=== PATIENT | male | born 1950 | race Caucasian/White ===

== ENCOUNTER → 2020-04-04 13:47 | Outpatient (BNVA) | payer MEDICARE, OTHER, SELFPAY | PROVIDERS: PCP Family Medicine; Visit Provider Urology | DX: Z76.89 Persons encountering health services in other specified circumstances (principal) | CPT/HCPCS: 99212 ==

== ENCOUNTER 2020-04-21 08:37 | Outpatient (REF) | payer MEDICARE, OTHER, SELFPAY ==
[2020-04-21 08:14] VITALS: BMI 31.8
[2020-04-21 08:16] VITALS: BP 113/50; PULSE 71; RESP 16; TEMP 36.3; O2SAT 96
--- NOTE | 2020-04-21 08:59 | MHC.SHP ---
Pre-Procedural Eval Section A The patient is an INPATIENT: No Changes since office visit: No Cold of Flu in the past 2 weeks, No New Medical Problems, No Changes in Medication and No Patient answered all questions The History & Physical has been completed within 30 days and I have reviewed it.: Yes Section B Chief Complaint: Elevated PSA Allergies: Allergies Allergy/AdvReac Type Severity Reaction Status Date / Time No Known Allergies Allergy Verified 04/21/20 08:43 Plan Patient has been examined and remains a candidate for the planned procedure
--- NOTE | 2020-04-21 09:18 | PM.OP ---
Brief Operative Note Date of procedure: 04/21/20 Pre-op diagnosis: Elevated SPA Post-op diagnosis: same Procedure: Transrectal ultrasound measurement of prostate 2. transrectal ultrasound-guided prostatic nerve block 3. transrectal ultrasound-guided prostate biopsy Implants: none Surgeon: Dirk Jerome MD Anesthesia: local Estimated blood loss (mL): 0 Pathology: other (12 core prostate) Condition: stable Disposition: same day
--- NOTE | 2020-04-21 09:19 | W.PM.OPN ---
Operative Note Operative Note Narrative: Preoperative diagnosis: Elevated PSA Postoperative diagnosis: Elevated PSA Procedure: 1. transrectal ultrasound measurement of prostate 2. transrectal ultrasound-guided pudendal nerve block 3. transrectal ultrasound-guided prostate biopsy 12 core Surgeon: Dr. Dirk Jerome Anesthetic: Local Indications for procedure: Elevated PSA Prostate Cancer Procedure: After informed consent was verified, the patient was brought into the procedure area and lay left-hand side down on the table. Patient identity confirmed. Perioperative antibiotics confirmed. Gel was placed per rectum Ultrasound probe was placed per rectum The prostate was measured in 3 dimensions Total volume equals 110 g, no calcification, no cyst There were no cystic structures and no calcifications noted and the prostate was homogeneous in nature A ultrasound-guided pudendal nerve block was performed using 10 cc of 1% lidocaine. 8 cc was placed at the base and 2 cc of the apex. A 12 core biopsy was performed with 6 cores each side. Two cores were taken at the apex, mid and base. Cores were spaced between lateral and medial. He tolerated the procedure well. Was able to ambulate to bathroom after 5 minutes. Printed instructions regarding antibiotic use and common side effects such as low-grade temperature and bleeding were given.
== END 2020-04-21 08:38 | disposition home or self-care (01) ==
LOC: HO.MS 08:37
PROVIDERS: PCP Family Medicine; Visit Provider Urology
PROC: (CPT 55700; principal; 2020-04-21 09:30)
DX: R97.20 Elevated prostate specific antigen [PSA] (principal)
CPT/HCPCS: 55700; 88305; 88344

== ENCOUNTER → 2020-04-30 15:39 | Outpatient (BNVA) | payer MEDICARE, OTHER, SELFPAY | PROVIDERS: PCP Family Medicine; Referring Provider Family Medicine; Visit Provider Urology | DX: Z76.89 Persons encountering health services in other specified circumstances (principal) | CPT/HCPCS: Q3014 ==

== ENCOUNTER → 2020-12-09 15:02 | Outpatient (BNVA) | payer MEDICARE, OTHER, SELFPAY | PROVIDERS: Visit Provider Urology | DX: N40.0 Benign prostatic hyperplasia without lower urinary tract symptoms (principal); R97.20 Elevated prostate specific antigen [PSA] | CPT/HCPCS: 99212 ==

== ENCOUNTER → 2021-06-17 13:43 | Outpatient (BNVA) | payer MEDICARE, OTHER, SELFPAY | PROVIDERS: PCP Family Medicine; Visit Provider Urology | DX: N40.0 Benign prostatic hyperplasia without lower urinary tract symptoms (principal); R97.20 Elevated prostate specific antigen [PSA] | CPT/HCPCS: Q3014 ==

== ENCOUNTER → 2021-12-22 14:04 | Outpatient (BNVA) | payer MEDICARE, OTHER, SELFPAY | PROVIDERS: PCP Internal Medicine; Visit Provider Urology | DX: N40.0 Benign prostatic hyperplasia without lower urinary tract symptoms (principal); R97.20 Elevated prostate specific antigen [PSA] | CPT/HCPCS: Q3014 ==

== ENCOUNTER → 2022-06-23 14:48 | Outpatient (BNVA) | payer MEDICARE, OTHER, SELFPAY | PROVIDERS: PCP Internal Medicine; Visit Provider Urology | DX: R97.20 Elevated prostate specific antigen [PSA] (principal); N40.0 Benign prostatic hyperplasia without lower urinary tract symptoms; N39.43 Post-void dribbling; Z79.01 Long term (current) use of anticoagulants; Z79.899 Other long term (current) drug therapy | CPT/HCPCS: 99212 ==

== ENCOUNTER 2023-03-30 | Outpatient (REF) | payer MEDICARE, OTHER, SELFPAY | END 2023-03-30 00:01 | disposition home or self-care (01) | LOC: CF | PROVIDERS: Visit Provider Nurse Practitioner Family | DX: R06.09 Other forms of dyspnea (principal); R94.2 Abnormal results of pulmonary function studies; I42.9 Cardiomyopathy, unspecified | CPT/HCPCS: 94618; 99212 ==

== ENCOUNTER 2023-03-30 15:14 | Outpatient (AMB) | payer MEDICARE, OTHER, SELFPAY ==
--- NOTE | 2023-03-30 15:33 | A.OFFVIS_ITS ---
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 Builder Required: No Channel Specialist: Channel Specialist offered & declined Accompanied by: Self / Same As Patient Allergies No Known Allergies Allergy (Verified 03/30/23 15:41) Medication List - Last Reconciled 03/30/23 by Shruti Gonzalez LPN allopurinol 300 mg PO DAILY allopurinol 100 mg PO DAILY apixaban 5 mg PO BID atorvastatin 40 mg PO BEDTIME finasteride 5 mg PO DAILY 90 days lisinopril 10 mg PO DAILY metformin ER 1,000 mg PO BID metoprolol succinate ER mg PO metoprolol succinate ER 200 mg PO DAILY metoprolol succinate ER 200 mg PO DAILY sacubitril-valsartan 97-103 mg 1 tab PO BID spironolactone mg PO warfarin 5 mg PO DAILY HPI covid syndrome 2 HPI0 Details Jagdish is a pleasant 72 year old male, never smoker, with underlying h/o provoked DVT after prolonged travel in 2009, cardiomyopathy, atrial fibrillation, maintained on metoprolol and coumadin, under cardiology at [facility]. He was referred for pulmonary evaluation after for worsening dyspnea over the past few months. His referral states possible long COVID, but patient states symptoms started after being diagnosed with atrial fibrillation. He has had COVID x 2. He denies chest tightness/discomfort or wheezing.He does have an acute cough x 1 week that has been resolving, otherwise denies cough at baseline. He reports having a recent PFT which revealed decreased DLCO, full report below. He was recently admitted at [facility] due to dyspnea where he reportedly had a recent echo and chest CT. Reports not available today. He also reports intermittent bilateral lower extremity edema, now on lasix after recent hospital admission. He denies any prior history of respiratory conditions. He reports multiple family members, all smokers, with lung cancer. 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 [facility] Medical History Benign prostatic hyperplasia without lower urinary tract symptoms Elevated PSA Incomplete emptying of bladder Weak urinary stream Social History (Updated 03/30/23 @ 15:45 by Shruti J Cambria, [employer]) Patient Tobacco Use Status: Never used Tobacco Advance Directives Date on File: 04/21/20 Review of Systems Const Denies chills, Denies excessive sweating, Denies fever(s), Denies headache(s) and Denies night sweats Eyes Denies dry eyes, Denies irritation and Denies itchy eyes ENT Reports Normal hearing present, Denies headache(s), Denies nasal congestion, Denies nasal discharge, Denies post nasal drip and Denies sore throat Card Denies chest pain, Denies chest pain at rest, Denies chest pain with activity, Denies claudication, Denies leg edema, Denies orthopnea and Denies paroxysmal nocturnal dyspnea Resp Denies chest congestion, Denies excessive phlegm production, Denies pain on inspiration, Denies pain with cough, Denies stridor and Denies wheezing Musc Denies myalgias Neuro Reports Normal hearing present and Denies headache(s) Endo Denies excessive sweating Rasheed/Lymph Denies lymphadenopathy Aller/Immun Denies itchy eyes, Denies seasonal rhinorrhea and Denies wheezing Physical Exam Vital Signs: Last Vital Signs BP 122/64 03/30/23 15:37 Pulse Ox 94 03/30/23 15:37 Oxygen Delivery Method Room Air 03/30/23 15:37 Oxygen Flow Rate 80 03/30/23 15:37 BMI result Body Mass Index 28.9 Const General: cooperative, healthy appearing, comfortable, no acute distress, well developed and alert Orientation/consciousness: patient oriented x3 Limitations: no limitations HEENT Head: Yes normal to inspection, Yes normocephalic and Yes atraumatic Ears: hearing grossly normal bilaterally and external ears normal Eyes General: appearance normal, both eyes and all related structures Eyelids: Yes eyelids normal Sclerae: sclerae normal EOM: EOMs intact bilaterally Neck Neck: Yes normal visual inspection and Yes no lymphadenopathy Lymphatic: no lymphadenopathy noted Chest Chest palpation & inspection: normal inspection of the chest Resp Effort & Inspection: normal respiratory effort, able to speak in complete sentences, no audible wheezes, no cough, no stridor, not tachypneic, no tripod positioning and no use of accessory muscles Auscultation: clear to auscultation bilaterally Cardio Jugular venous distension: no JVD Rate: regular rate Rhythm: regular rhythm Skin Other: warm, dry General skin exam: no rashes or lesions noted Neuro General: patient oriented x3 Cranial nerves: Yes Normal hearing present Cognition (Neuro): normal cognition Gait exam (Neuro): Normal gait present Extrem Other: trace edema BLE, L>R, currently has wound of LLE. General: Yes normal to inspection and Yes capillary refill normal Psych Appearance: grossly normal and well kempt Speech and movement: Normal speech and movement present and Clear speech present Affect: normal affect Attitude: cooperative Thought process: Normal thought process present Thought content: Normal thought content present Insight: Good insight present (Psych) Judgement: Good judgement present (Psych) Office Procedures 6 Minute Walk Time:: 16:20 SPO2 % at rest: 94 Pulse at rest: 104 SPO2 % during excercise: 80 Pulse during excercise: 124 SPO2 % after excercise: 96 Pulse after excercise: 118 Distance in yards walked: 1,000 Aniket Score: 6 Performance Observations:: Patient walked on level ground without assistance. After about 4 minutes he was short of breath and his O2 saturating dropped to 85% and then further to 80%. O2 applied via nasal cannula at 1L with O2 saturation recovered to 95% pulse rate of 105. Patient was able to complete the walk with O2 at 1 L maintaining his O2 sat at 95%. Patient would benefit from supplemental O2. 08919 - 6 Minute Walk Results Reviewed Results Reviewed: Assessment & Plan Assessment & Plan (1) Dyspnea on exertion: Code(s): R06.09 - Other forms of dyspnea (2) Cardiomyopathy: Code(s): I42.9 - Cardiomyopathy, unspecified (3) Decreased diffusion capacity: Code(s): R94.2 - Abnormal results of pulmonary function studies Plan Jagdish's symptoms are likely multifactorial with pulmonary and cardiac etiologies due to underlying atrial fibrillation and cardiomyopathy. Last echo revealed LVEF of 40-50% and elevated pulmonary pressures, report above. Will request cardiology reports to see if patient has had right heart catherization performed. Reviewed PFT from January 2023, which revealed normal lung volumes and did not reveal any obstructive or restrictive defects, however there is a significant decrease in DLCO, 47%, which is suggestive of possible interstitial lung disease or emphysema. Will obtain most recent chest CT to evaluate and will likely need to obtain disc for images, along with echo from recent hospital stay at [facility]. Will empirically trial ICS/LABA. Reviewed importance of oral hygiene. 6MWT performed and after 4 minutes his oxygen decreased to 80% and recovered after 1 liter of oxygen. Will send prescription for 1 liter of supplemental oxygen. Will also send for overnight oximetry to assess for nocturnal hypoxia. Will follow up in two weeks to reassess. All questions were answered and patient is in agreement of plan. Orders: Orders 2 AMB 6 minute walk Today R06.09 - Other forms of dyspnea Medications: New 2 Breo Ellipta 100-25 mcg/dose (fluticasone furoate-vilanterol) 1 inh inhalation DAILY 60 ea 3RF NS Coding Level of Care Code New Pt Level 4 (90452) Diagnoses Dyspnea on exertion R06.09 Cardiomyopathy I42.9 Decreased diffusion capacity R94.2 CPT Codes Coding ([id number])
[2023-03-30 15:37] VITALS: BP 122/64; O2SAT 94; BMI 28.9
[2023-03-30 16:59] VITALS: PULSE 104; O2SAT 94
== END 2023-03-30 16:46 | disposition home or self-care (01) ==
LOC: HO.HPSW 15:14
PROVIDERS: PCP Internal Medicine Cardiovascular Disease; Referring Provider Internal Medicine; Visit Provider Nurse Practitioner Family
DX: R06.09 Other forms of dyspnea (principal); R94.2 Abnormal results of pulmonary function studies; I42.9 Cardiomyopathy, unspecified
CPT/HCPCS: 94618; 99204

== ENCOUNTER 2023-04-13 15:01 | Outpatient (AMB) | payer MEDICARE, OTHER, SELFPAY ==
[2023-04-13 15:02] VITALS: BP 114/68; PULSE 98; O2SAT 99; BMI 29.7
--- NOTE | 2023-04-13 15:02 | A.OFFVIS_ITS ---
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 Required: No Lastex Operator: Lastex Operator offered & declined Accompanied by: Spouse Allergies No Known Allergies Allergy (Verified 04/13/23 15:13) Medication List - Last Reconciled 04/13/23 by Shruti Gonzalez LPN allopurinol 300 mg PO DAILY allopurinol 100 mg PO DAILY apixaban 5 mg PO BID atorvastatin 40 mg PO BEDTIME Breo Ellipta 100-25 mcg/dose (fluticasone furoate-vilanterol) 1 inh inhalation DAILY NS finasteride 5 mg PO DAILY 90 days lisinopril 10 mg PO DAILY metformin ER 1,000 mg PO BID metoprolol succinate ER mg PO metoprolol succinate ER 200 mg PO DAILY metoprolol succinate ER 200 mg PO DAILY sacubitril-valsartan 97-103 mg 1 tab PO BID spironolactone mg PO warfarin 5 mg PO DAILY HPI covid syndrome:2 week f/u 2 HPI0 Details Jagdish is a pleasant 72 year old male, never smoker, with underlying nonischemic cardiomyopathy, LVEF 03/22 55-60%, atrial fibrillation, h/o DVT, h/o CVA, Factor V Leiden mutation, maintained on metoprolol and coumadin, under care of cardiology at [facility]. Despite significant cardiac history patient maintained an active lifestyle until recently where he began to develop worsening dyspnea over the past few months, recent PFT which revealed a normal spirometry, normal lung volumes with decreased DLCO of 46%. Reviewed records from admission to [facility] earlier this month including echo and chest CT, full reports below. At the last visit he was empirically started on Breo, which he has only been using for the past 5 days as well as 1L of supplemental oxygen. Today he reports worsening dyspnea as well as limited activity due to increasing labored breathing. He reports continuing on lasix 40 mg QD. Since the last visit two weeks ago, he has gained 6 lbs. He recently had a consultation with [facility] hematology/oncology for pancytopenia and abnormal blood smears suggestive of a neoplastic process. He reports that he will be starting treatment in the near future as well as having a chest, abdomen and pelvic CT on Tuesday. He also reports that he will be following up with [facility] cardiology next week. Of note, he stated he had a sleep study 2-3 years ago performed at [facility] but never reviewed findings, will attempt to obtain report. [facility] Medical History Benign prostatic hyperplasia without lower urinary tract symptoms Elevated PSA Incomplete emptying of bladder Weak urinary stream Social History (Updated 04/13/23 @ 15:15 by Shruti Gonzalez LPN) Patient Tobacco Use Status: Never used Tobacco Advance Directives Date on File: 04/21/20 Review of Systems Const Denies chills, Denies excessive sweating, Denies fever(s), Denies headache(s) and Denies night sweats Eyes Denies dry eyes, Denies irritation and Denies itchy eyes ENT Reports Normal hearing present and Denies headache(s) Card Denies chest pain, Denies chest pain at rest, Denies chest pain with activity, Denies claudication, Reports leg edema, Reports dyspnea on exertion, Denies orthopnea and Denies paroxysmal nocturnal dyspnea Resp Denies chest congestion, Denies excessive phlegm production, Denies pain on inspiration, Denies pain with cough, Reports dyspnea on exertion, Denies stridor and Denies wheezing Musc Denies myalgias Neuro Reports Normal hearing present and Denies headache(s) Endo Denies excessive sweating Rasheed/Lymph Denies lymphadenopathy Aller/Immun Denies itchy eyes, Denies seasonal rhinorrhea and Denies wheezing Physical Exam Vital Signs: Last Vital Signs Pulse 98 04/13/23 15:02 BP 114/68 04/13/23 15:02 Pulse Ox 99 04/13/23 15:02 Oxygen Delivery Method Nasal Cannula 04/13/23 15:02 Oxygen Flow Rate 1 04/13/23 15:02 BMI result Body Mass Index 29.7 Const General: cooperative, no acute distress, well developed, alert and tired appearing Orientation/consciousness: patient oriented x3 Limitations: no limitations HEENT Head: Yes normal to inspection, Yes normocephalic and Yes atraumatic Ears: hearing grossly normal bilaterally and external ears normal Eyes General: appearance normal, both eyes and all related structures Eyelids: Yes eyelids normal Sclerae: sclerae normal EOM: EOMs intact bilaterally Neck Neck: Yes normal visual inspection and Yes no lymphadenopathy Lymphatic: no lymphadenopathy noted Chest Chest palpation & inspection: normal inspection of the chest Resp Effort & Inspection: able to speak in complete sentences, no audible wheezes, no cough, no stridor, not tachypneic, no tripod positioning and no use of accessory muscles Auscultation: crackles bilateral (faint inspiratory crackles) at the base Cardio Other: afib Jugular venous distension: no JVD Rate: regular rate Skin Other: warm, dry Neuro General: patient oriented x3 Cranial nerves: Yes Normal hearing present Cognition (Neuro): normal cognition Gait exam (Neuro): Normal gait present Extrem Other: 1-2+ pitting edema BLE, currently has wound of LLE being treated at wound care Psych Appearance: grossly normal and well kempt Speech and movement: Normal speech and movement present and Clear speech present Affect: normal affect Attitude: cooperative Thought process: Normal thought process present Thought content: Normal thought content present Insight: Good insight present (Psych) Judgement: Good judgement present (Psych) Results Reviewed Results Reviewed: CT 03/29/23 Echo 03/22/23 Assessment & Plan Assessment & Plan (1) Dyspnea on exertion: Code(s): R06.09 - Other forms of dyspnea (2) Cardiomyopathy: Code(s): I42.9 - Cardiomyopathy, unspecified (3) Pleural effusion due to congestive heart failure: Code(s): I50.9 - Heart failure, unspecified (4) Decreased diffusion capacity: Code(s): R94.2 - Abnormal results of pulmonary function studies (5) Pulmonary hypertension: Code(s): I27.20 - Pulmonary hypertension, unspecified Plan Jagdish's worsening symptoms are likely related to cardiac etiologies due to underlying atrial fibrillation and cardiomyopathy as well as anemia. We had long discussion regarding nature of his condition and ways to monitor including daily weights, limiting fluid intake and assessing for BLE edema. On exam today patient with 1-2+ pitting edema of BLE as well as faint bibasilar inspiratory crackles. Advised patient to increase his lasix to 40 mg BID until he is evaluated by cardiology next week. He was also given an order for CXR if his symptoms continue despite using lasix and to seek emergent care if symptoms worsen. Reviewed CT chest which revealed multiple enlarged mediastinal, hilar and subcarinal lymph nodes as well as bilateral small pleural effusions, suggestive of CHF. He reports he will be having a repeat chest CT this coming Tuesday with oncology. Echo revealed severely dilated left and right atrium as well as elevated pulmonary pressures. Briefly discussed assessing pulmonary hypertension with right heart catherization, but will await cardiology recommendations and plan with oncology. Will obtain prior sleep study to evaluate for any GLENDY that may be contributing to increased pulmonary pressures. Instructed patient to continue to use ICS/LABA another two weeks and if no notable improvements to discontinue. Will follow up in 4 weeks to reassess and review details of plan in place from cardiology and oncology. All questions were answered and patient is in agreement of plan. Orders: Orders 2 XR chest 2V Today R06.00 - Dyspnea, unspecified Coding Level of Care Code Est Pt Level 5 (58285) Diagnoses Dyspnea on exertion R06.09 Cardiomyopathy I42.9 Pleural effusion due to congestive heart failure I50.9 Decreased diffusion capacity R94.2 Pulmonary hypertension I27.20
== END 2023-04-13 16:10 | disposition home or self-care (01) ==
LOC: HO.HPSW 15:01
PROVIDERS: PCP Internal Medicine; Visit Provider Nurse Practitioner Family
DX: R06.09 Other forms of dyspnea (principal); R94.2 Abnormal results of pulmonary function studies; I27.20 Pulmonary hypertension, unspecified; I42.9 Cardiomyopathy, unspecified; I50.9 Heart failure, unspecified
CPT/HCPCS: 99214

== ENCOUNTER → 2023-04-13 15:01 | Outpatient (BNVA) | payer MEDICARE, OTHER, SELFPAY | PROVIDERS: PCP Internal Medicine; Visit Provider Nurse Practitioner Family | DX: I27.20 Pulmonary hypertension, unspecified (principal); I42.9 Cardiomyopathy, unspecified; R06.09 Other forms of dyspnea; I50.9 Heart failure, unspecified; R94.2 Abnormal results of pulmonary function studies | CPT/HCPCS: 99212 ==

== ENCOUNTER 2023-05-18 13:17 | Outpatient (AMB) | payer MEDICARE, OTHER, SELFPAY ==
[2023-05-18 13:24] VITALS: BMI 26.7
--- NOTE | 2023-05-18 13:24 | A.OFFVIS_ITS ---
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 Biomedical Engineering Required: No Dental Appliance Mechanic: Dental Appliance Mechanic offered & declined Accompanied by: Spouse Allergies No Known Allergies Allergy (Verified 05/18/23 13:27) Medication List - Last Reconciled 05/18/23 by Shruti Gonzalez LPN allopurinol 300 mg PO DAILY apixaban 5 mg PO BID atorvastatin 40 mg PO BEDTIME finasteride 5 mg PO DAILY 90 days metformin ER 1,000 mg PO BID metoprolol succinate ER 200 mg PO DAILY HPI covid syndrome : 5 week f/u HPI Details Jagdish is a pleasant 72 year old male, never smoker, with underlying nonischemic cardiomyopathy, LVEF 03/22 55-60%, atrial fibrillation, h/o DVT, h/o CVA, Factor V Leiden mutation, maintained on metoprolol and coumadin, under care of cardiology at [facility] and recently diagnosed with Myelodysplastic syndrome. He is under the care of oncology at [facility] and is receving chemo azacitidine a nd ventoclax. Since the last visit, he reports worsening of dyspnea, fatigue and deconditioning. He recently had labs and revealed pantocytopenia with WBC 0.4 and H/H of 12/14. He received a blood transfusion earlier today and is aware of neutropenic precautions. [facility] Medical History (Updated 05/24/23 @ 16:32 by Paige Guadalupe NP) Pulmonary hypertension Nocturnal hypoxemia Congestive heart failure (CHF) Cardiomyopathy Atrial fibrillation Factor 5 Leiden mutation, heterozygous History of DVT (deep vein thrombosis) History of CVA (cerebrovascular accident) Type 2 diabetes mellitus Gilbert syndrome Benign prostatic hyperplasia without lower urinary tract symptoms Elevated PSA Surgical History (Updated 05/06/23 @ 09:02 by Jaqueline Loja PA-C) History of prostate biopsy (~2019) History of appendectomy (~1958) Family History (Updated 05/06/23 @ 08:59 by Jaqueline Loja PA-C) Mother Lung cancer Father Prostate cancer Social History (Updated 04/13/23 @ 15:15 by Shruti Gonzalez LPN) Patient Tobacco Use Status: Never used Tobacco Advance Directives Date on File: 04/21/20 Review of Systems Const Denies excessive sweating, Denies fever(s) and Denies headache(s) Eyes Denies dry eyes, Denies irritation and Denies itchy eyes ENT Reports Normal hearing present and Denies headache(s) Card Denies chest pain, Denies chest pain at rest, Denies chest pain with activity, Denies claudication, Reports leg edema, Reports dyspnea on exertion, Denies orthopnea and Denies paroxysmal nocturnal dyspnea Resp Denies chest congestion, Denies excessive phlegm production, Denies pain on inspiration, Denies pain with cough, Reports dyspnea on exertion, Denies stridor and Denies wheezing Neuro Reports Normal hearing present and Denies headache(s) Endo Denies excessive sweating Aller/Immun Denies itchy eyes, Denies seasonal rhinorrhea and Denies wheezing Physical Exam Vital Signs: BMI result Body Mass Index 26.7 Const General: cooperative, no acute distress, alert and tired appearing Orientation/consciousness: patient oriented x3 HEENT Head: Yes normal to inspection, Yes normocephalic and Yes atraumatic Ears: hearing grossly normal bilaterally and external ears normal Eyes General: appearance normal, both eyes and all related structures Eyelids: Yes eyelids normal Sclerae: sclerae normal EOM: EOMs intact bilaterally Neck Neck: Yes normal visual inspection Chest Chest palpation & inspection: normal inspection of the chest Resp Effort & Inspection: able to speak in complete sentences, no audible wheezes, no cough, no stridor, not tachypneic, no tripod positioning and no use of accessory muscles Cardio Other: afib Jugular venous distension: no JVD Rate: regular rate Skin Other: warm, dry Neuro General: patient oriented x3 Cranial nerves: Yes Normal hearing present Cognition (Neuro): normal cognition Gait exam (Neuro): Normal gait present Extrem Other: 1-2+ pitting edema BLE, currently has wound of LLE being treated at wound care Psych Appearance: grossly normal and well kempt Speech and movement: Normal speech and movement present and Clear speech present Affect: normal affect Attitude: cooperative Thought process: Normal thought process present Thought content: Normal thought content present Insight: Good insight present (Psych) Judgement: Good judgement present (Psych) Assessment & Plan Assessment & Plan (1) Dyspnea on exertion: Code(s): R06.09 - Other forms of dyspnea (2) Cardiomyopathy: Code(s): I42.9 - Cardiomyopathy, unspecified (3) Pleural effusion due to congestive heart failure: Code(s): I50.9 - Heart failure, unspecified (4) Decreased diffusion capacity: Code(s): R94.2 - Abnormal results of pulmonary function studies (5) Pulmonary hypertension: Code(s): I27.20 - Pulmonary hypertension, unspecified (6) Interstitial lung disease: Code(s): J84.9 - Interstitial pulmonary disease, unspecified Plan Jagdish's worsening symptoms are likely related to cardiac etiologies due to underlying atrial fibrillation and cardiomyopathy as well as anemia and imaging suggestive of ILD. We again had long discussion regarding nature of his condition and ways to monitor including daily weights, limiting fluid intake and assessing for BLE edema. Echo revealed severely dilated left and right atrium as well as elevated pulmonary pressures. Briefly discussed assessing pulmonary hypertension with right heart catherization, but will await cardiology recommendations and plan with oncology. Will again attempt to obtain prior sleep study to evaluate for any GLENDY that may be contributing to increased pulmonary pressures. Instructed patient to continue to use ICS/LABA and supplemental oxygen. At this time, given patient is immunocompromised and continues to receive chemotherapy, will hold off any on treatment for ILD, as his condition may worsen with prednisone. Discussed with integration software developer, Celine Dutton. Will follow up on an as needed basis until he completes chemotherapy or sooner if needed. Discussed importance of monitoring oxygen saturation, however with anemia this may be difficult. All questions were answered and patient is in agreement of plan. Coding Level of Care Code Est Pt Level 4 (70500) Diagnoses Dyspnea on exertion R06.09 Cardiomyopathy I42.9 Pleural effusion due to congestive heart failure I50.9 Decreased diffusion capacity R94.2 Pulmonary hypertension I27.20 Interstitial lung disease J84.9
== END 2023-05-18 14:07 | disposition home or self-care (01) ==
PROVIDERS: PCP Internal Medicine; Visit Provider Nurse Practitioner Family
DX: R06.09 Other forms of dyspnea (principal); I42.9 Cardiomyopathy, unspecified; I50.9 Heart failure, unspecified; R94.2 Abnormal results of pulmonary function studies; I27.20 Pulmonary hypertension, unspecified; J84.9 Interstitial pulmonary disease, unspecified
CPT/HCPCS: 99214

== ENCOUNTER → 2023-05-18 13:17 | Outpatient (BNVA) | payer MEDICARE, OTHER, SELFPAY | PROVIDERS: PCP Internal Medicine; Visit Provider Nurse Practitioner Family | DX: R06.09 Other forms of dyspnea (principal); I50.9 Heart failure, unspecified; I42.9 Cardiomyopathy, unspecified; I27.20 Pulmonary hypertension, unspecified; R94.2 Abnormal results of pulmonary function studies; J84.9 Interstitial pulmonary disease, unspecified | CPT/HCPCS: 99212 ==

== ENCOUNTER 2023-07-01 13:33 | Outpatient (AMB) | payer MEDICARE, OTHER, SELFPAY ==
--- NOTE | 2023-07-01 13:34 | MHC.OFFVIS ---
Intake Intake Visit Reasons: 1Y PSA([place]) Intake Note: Patient is Present for Telephone Follow Up PSA Urology Med: Finasteride, Antibiotic Allergy: None Blood Thinner: Eliquis Allergies No Known Allergies Allergy (Verified 05/18/23 13:27) HPI HPI Comments History of Present Illness Details Jagdish HERRERA is a very pleasant male. He is a patient of Dr Cole. He is seen today for the following urologic conditions. - elevated PSA - BPH - postvoid dribbling Telemedicine Evaluation 15 min Consultation [facility] Video attempted Every other day finasteride. PSA rise to 3.6. This is consistent with declining finasteride effect Start finasteride daily Confounding factor is leukemia therapy which has had impact on urination Discussed postvoid dribbling. Information provided regarding male pelvic floor exercises Six month follow-up PSA Elevated PSA/Abnormal MARINO: Elevated PSA Negative biopsy 04/15 Improved stream with finasteride and good PSA decline Current management is medication with 5AR - daily Laboratory investigations include prior PSA in 4 range 07/15 6.2, 01/12 4.5 12% free, 09/13 3.1, 03/16 4.8 12% Free, 12/15 1.9, 06/16 2.3, 12/16 1.4, 06/17 1.6, 06/18 3.6 Individualized Prostate Cancer Risk Calculator 5-10% high risk, Discussed use of 5AR to help differentiate prostate cancer from benign disease. He would like to try this and understands the small risk associated with a delay in diagnosis. A TRUS biopsy has been performed and is negative 2009 Negative Prostate Biopsy Symptoms include 08/15 , incomplete emptying, intermittency, weak stream, nocturia, x 1, and are worsening. Overall symptoms are moderate. Therapeutic plan will be continued surveillance [facility] Medical History (Updated 05/24/23 @ 16:32 by Paige Guadalupe NP) Pulmonary hypertension Nocturnal hypoxemia Congestive heart failure (CHF) Cardiomyopathy Atrial fibrillation Factor 5 Leiden mutation, heterozygous History of DVT (deep vein thrombosis) History of CVA (cerebrovascular accident) Type 2 diabetes mellitus Gilbert syndrome Benign prostatic hyperplasia without lower urinary tract symptoms Elevated PSA Surgical History (Updated 05/06/23 @ 09:02 by Jaqueline Loja PA-C) History of prostate biopsy (~2019) History of appendectomy (~1958) Family History (Updated 05/06/23 @ 08:59 by Jaqueline Loja PA-C) Mother Lung cancer Father Prostate cancer Social History (Updated 04/13/23 @ 15:15 by Shruti Gonzalez LPN) Patient Tobacco Use Status: Never used Tobacco Advance Directives Date on File: 04/21/20 Review of Systems Const All systems reviewed & are unremarkable except as noted in HPI and below Reports no additional complaints Resp Reports no additional complaints GI Reports no additional complaints Reports as per HPI Musc Reports no additional complaints Physical Exam Telemedicine evaluation Appropriate responses Regular breathing rate and rhythm HEENT Head: Yes normal to inspection Ears: hearing grossly normal bilaterally Eyes General: appearance normal, both eyes and all related structures Neck Neck: Yes normal visual inspection Chest Chest palpation & inspection: normal inspection of the chest Resp Effort & Inspection: normal respiratory effort and able to speak in complete sentences Assessment & Plan Assessment & Plan (1) BPH w/o urinary obs/LUTS: Code(s): N40.0 - Benign prostatic hyperplasia without lower urinary tract symptoms (2) Elevated PSA: Code(s): R97.20 - Elevated prostate specific antigen [PSA] Plan Six month follow-up PSA Medications: Refilled finasteride 5 mg PO DAILY 90 tabs 1RF 90 days Patient Instructions: Imaging studies, laboratory and physical exam results were discussed and reviewed in detail. No major barriers to patient understanding were identified. An opportunity to ask questions regarding the treatment plan was provided. All questions were answered. The patient expressed understanding and agreement with the above treatment plan. The patient is aware they should contact our office by phone for worsening of their current condition or the appearance of new urologic symptoms. Compliance is encouraged with any medications and followup testing that is ordered. It is a privilege to participate in the urologic care of your patient. If you have any questions or concerns regarding treatment for the above conditions, or other urologic issues, please do not hesitate to contact me. The office telephone contact is [phone]. This note is constructed using voice recognition software. While every effort has been made to ensure accuracy wreath inspector errors may have been included. Yours sincerely, Dr Dirk Jerome MD, [facility] - Urology Providers of Expert, Compassionate Care for the Genitourinary System Telehealth Telehealth Location of provider rendering services: practice address Location of patient: address on file Patient Identification confirmed using: Name, : Yes Telehealth method: video Patient verbally consented to treatment: Yes Patient verbally consented to billing insurance company: Yes Patient informed of any privacy concerns related to visit: Yes Coding Level of Care Code Tele Est Pt Level 4 (30811) Diagnoses BPH w/o urinary obs/LUTS N40.0 Elevated PSA R97.20
== END 2023-07-01 13:45 | disposition home or self-care (01) ==
LOC: HO.HUSH 13:33
PROVIDERS: PCP Internal Medicine; Visit Provider Urology
DX: N40.0 Benign prostatic hyperplasia without lower urinary tract symptoms (principal); R97.20 Elevated prostate specific antigen [PSA]
CPT/HCPCS: 99214

== ENCOUNTER → 2023-07-01 13:33 | Outpatient (BNVA) | payer MEDICARE, OTHER, SELFPAY | PROVIDERS: PCP Internal Medicine; Visit Provider Urology ==